=== PATIENT | male | born 1980 | race Hispanic/Latino ===

== ENCOUNTER 2018-12-03 01:01 | Emergency (ER) | payer OTHER | END 2018-12-03 01:40 | disposition home or self-care (01) | LOC: EDH 01:01 | DX: Z00.00 Encounter for general adult medical examination without abnormal findings (principal); Z72.0 Tobacco use | CPT/HCPCS: 99281 ==

== ENCOUNTER 2019-03-28 10:24 | Emergency (ER) | payer OTHER ==
[2019-03-28] MEDS ORDERED: TETANUS/DIPHTHERIA TOXOID [ADULT] 0.5 ML VIAL IM ONE (10:46)
[2019-03-28] MEDS ORDERED: NAPROXEN 500 MG TABLET ONE (11:12)
== END 2019-03-28 11:19 | disposition home or self-care (01) ==
LOC: EDH 10:24
DX: S62.312A Displaced fracture of base of third metacarpal bone, right hand, initial encounter for closed fracture (principal); S51.011A Laceration without foreign body of right elbow, initial encounter; Z72.0 Tobacco use; W18.39XA Other fall on same level, initial encounter; Y93.89 Activity, other specified; Y92.008 Other place in unspecified non-institutional (private) residence as the place of occurrence of the external cause; Y99.8 Other external cause status
CPT/HCPCS: 29125; 73080; 73130; 90471; 90714

== ENCOUNTER 2023-11-28 20:20 | Emergency (ER) | payer BC ==
[~2023-11-28] VITALS: Ht 180.3 cm; Wt 95.7 kg
[2023-11-28 21:10] LABS: APPEARANCE,URINE CLEAR (CLEAR); BILIRUBIN,URINE NEGATIVE (NEGATIVE); GLUCOSE, URINE (UA) NEGATIVE (NEGATIVE); KETONES,URINE NEGATIVE (NEGATIVE); LEUKOCYTE ESTERASE ,URINE NEGATIVE Leu/uL (NEGATIVE); NITRATE,URINE NEGATIVE (NEGATIVE); OCCULT BLOOD,URINE LARGE (NEGATIVE); PROTEIN,URINE NEGATIVE (NEGATIVE); UROBILINOGEN,URINE 0.2 mg/dL (0.2-1.0)
[2023-11-28] MEDS: FAMOTIDINE 20MG VIAL IV ONE (21:15)
[2023-11-28] MEDS: ONDANSETRON 4MG INJ IVP ONE (21:15)
[2023-11-28] MEDS: DiphenhydrAMINE HCL 50 MG/ML VIAL IV ONE (21:15)
[2023-11-28] MEDS: 0.9%NACL 1000ML 1,000 ML IV SCH (21:15)
[2023-11-28 21:16] LABS: HEMATOCRIT 39.8 % (42-54); MEAN CORPUSCULAR HEMOGLOBIN 32.3 pg (27.0-33.0); MEAN CORPUSCULAR HGB CONC 35.2 g/dL (32.0-36.0); MEAN CORPUSCULAR VOLUME 91.9 fL (79-99); PLATELET COUNT (AUTO) 208 K/uL (130-400); RED BLOOD CELL COUNT(AUTO) 4.33 MIL/uL (4.50-6.20); RED CELL DISTRIBUTION WIDTH 12.1 % (11.0-15.5); WHITE BLOOD COUNT (AUTO) 9.7 K/uL (4.8-10.8)
[2023-11-28 21:19] LABS: ADD UA MICROSCOPIC YES; COLOR,URINE Light-Yellow (YELLOW)
[2023-11-28 21:21] LABS: BASOPHILS # (AUTO) 0.08 K/uL (0.00-0.20); BASOPHILS % (AUTO) 0.8 % (0.0-5.0); EOSINOPHILS # (AUTO) 0.18 K/uL (0.00-0.70); EOSINOPHILS % (AUTO) 1.9 % (0.0-8.0); IMMATURE GRANULOCYTE ABSOLUTE 0.01 K/uL (0-1); LYMPHOCYTES # (AUTO) 2.2 K/uL (1.0-4.8); LYMPHOCYTES % (AUTO) 22.9 % (21.0-51.0); MONOCYTES # (AUTO) 0.8 K/uL (0.1-1.0); MONOCYTES % (AUTO) 7.8 % (3.0-13.0); NEUTROPHILS # (AUTO) 6.4 K/uL (1.8-7.7); NEUTROPHILS % (AUTO) 66.5 % (40.0-77.0)
[2023-11-28 21:22] LABS: BACTERIA,URINE RARE /HPF (None Seen); RBC,URINE 0-1 /HPF (0-1); SQUAMOUS EPITHELIAL CELL,UR RARE /HPF (0-2); WBC,URINE 0-1 /HPF (0-1)
[2023-11-28 21:23] LABS: AMPHET/METH SCREEN,URINE NEGATIVE (NEGATIVE); BARBITURATE SCREEN, URINE NEGATIVE (NEGATIVE); BENZODIAZEPINES SCREEN,URINE NEGATIVE (NEGATIVE); CANNABINOID SCREEN,URINE NEGATIVE (NEGATIVE); COCAINE SCREEN,URINE POSITIVE (NEGATIVE); OPIATE SCREEN,URINE NEGATIVE (NEGATIVE); PHENCYCLIDINE SCREEN,URINE NEGATIVE (NEGATIVE)
[2023-11-28 21:26] LABS: CREATININE 1.1 mg/dL (0.5-1.5); POTASSIUM 3.6 mmol/L (3.5-5.1)
[2023-11-28 21:27] LABS: INR <= 0.93 (0.85-1.15); PROTHROMBIN TIME 10.3 SEC (9.6-11.6)
[2023-11-28] MEDS ORDERED: IOHEXOL-350 75 ML VIAL IV ONE (21:27)
[2023-11-28 21:28] LABS: PARTIAL THROMBOPLASTIN TIME 26.7 SEC (26.3-35.5)
[2023-11-28 21:30] LABS: ALBUMIN 3.1 g/dL (3.5-5.0); BILIRUBIN,TOTAL 0.3 mg/dL (0.2-1.0); TOTAL PROTEIN, SERUM 7.4 g/dL (6.0-8.3)
[2023-11-28] MEDS: MORPHINE 4 MG SYG IVP ONE ×2 (22:55→23:42)
[2023-11-28] MEDS: 0.9%NACL 1000ML 1,000 ML IV ONE (22:59)
[2023-11-29] MEDS: HYDROMORPHONE 1 MG INJ IVP ONE (00:30)
[2023-11-29] MEDS: PROCHLORPERAZINE 10MG/2ML INJ IV ONE (00:47)
[2023-11-29] MEDS ORDERED: ONDA4TAB10 SL (01:34)
[2023-11-29] MEDS ORDERED: METH-662 PO (01:34)
[2023-11-29] MEDS ORDERED: IBUP-1493 PO (01:34)
[2023-11-29 01:47] VITALS: BP 140/79; PULSE 84; RESP 17; O2SAT 98
== END 2023-11-29 01:57 | disposition home or self-care (01) ==
LOC: EDH 20:20
DX: N13.30 Unspecified hydronephrosis (principal); M54.50 Low back pain, unspecified
CPT/HCPCS: 99284; 74177; 96374; 96375 ×2; 96361; 82550; 80053; 80305; 82140; 83690; 85025; 85610; 85730; 81001; 36415; 96376; J1200; J3490; J7030; J2405; J2270 ×2; Q9967; J1170; J0780

== ENCOUNTER 2024-06-08 18:56 | Emergency (ER) | payer BC ==
[~2024-06-08] VITALS: Ht 180.3 cm; Wt 95.3 kg
[~2024-06-08 18:56] MED LIST: IBUP-1493 PO; METH-662 PO; ONDA-243 SL
[2024-06-08] MEDS ORDERED: AMOX-426 PO (19:19)
[2024-06-08] MEDS: ketOROlac 15MG/ML VIAL (15MG/ML) IM STA (19:29)
[2024-06-08] MEDS: cefTRIAXone 1G VIAL IM STA (19:29)
[2024-06-08 20:19] VITALS: BP 150/90; PULSE 90; RESP 20; TEMP 99.1; O2SAT 98
== END 2024-06-08 20:21 | disposition home or self-care (01) ==
LOC: EDH 18:56
DX: K02.9 Dental caries, unspecified (principal); I10 Essential (primary) hypertension; Z98.890 Other specified postprocedural states
CPT/HCPCS: 99284; 96372 ×2; J0696; J1885

== ENCOUNTER 2024-09-08 04:00 | Emergency (ER) | payer BC ==
[~2024-09-08] VITALS: Ht 180.3 cm; Wt 97.5 kg
[~2024-09-08 04:00] MED LIST changes: +AMOX-426 PO
[2024-09-08 04:04] VITALS: TEMP 98.2
[2024-09-08 04:09] VITALS: BP 152/86; PULSE 85; RESP 18; O2SAT 96
[2024-09-08] MEDS: ketOROlac 30MG VIAL (30MG/ML) IM ONE (04:17)
[2024-09-08] MEDS: acetaMINOPHEN 500 MG TABLET PO ONE (04:17)
[2024-09-08] MEDS ORDERED: ACET-66 PO (04:19)
[2024-09-08] MEDS ORDERED: IBUP-2077 PO (04:19)
[2024-09-08] MEDS ORDERED: AMOX1TAB16 PO (04:19)
--- NOTE | 2024-09-08 04:19 | ERN ---
ED Note History of Present Illness Stated Complaint: TOOTHACHE Chief Complaint: Tooth Ache/Pain Time Seen by MD: 04:04 Dictation: Patient is a 44-year-old male with history of poor dental hygiene, presents to the ER complaining of tooth pain in the 1st-2nd upper left molar, patient states that the pain started today, he also reports being seen around 6 months ago at the emergency department due to similar pain where he received a pain medication shot and was discharged home, patient has not been followed by a dentist as outp atient. He denies fever, chills. Allergies: Coded Allergies: No Known Drug Allergies (Unverified Allergy, Unknown, 03/28/19) Home Meds Active Scripts Acetaminophen (Tylenol) 500 Mg Tab, 1 TAB PO Q6HPRN PRN for pain or fever for 5 Days, #20 TAB 0 Refills Prov:DARRIAN BRAN MD 09/08/24 Ibuprofen (Ibuprofen 800 mg Tab) 800 Mg Tab, 800 MG PO Q6H PRN for PAIN, #20 TAB Prov:DARRIAN BRAN MD 09/08/24 Amoxicillin/Potassium Clav (Amox Tr-K Clv 875-125 mg Tab) 875 Mg-125 Mg Tablet, 1 TAB PO BID for 7 Days, #14 TAB 0 Refills Prov:DARRIAN BRAN MD 09/08/24 Amoxicillin/Potassium Clav (Augmentin 500-125 Tablet) 500 Mg-125 Mg Tablet, 1 EACH PO TID for 7 Days, #21 TAB Prov:KENDRICK BRANTLEY 06/08/24 Methocarbamol (Robaxin) 750 Mg Tab, 750 MG PO Q8H, #12 TAB Prov:RADHA BHATTI MD 11/29/23 Ondansetron (Ondansetron Odt) 4 Mg Tab.rapdis, 4 MG SL Q4HPRN PRN for nausea/vomiting, #15 TAB Prov:RADHA BHATTI MD 11/29/23 Ibuprofen (Motrin/Advil) 800 Mg Tab, 800 MG PO Q8H, #12 TAB Prov:RADHA BHATTI MD 11/29/23 Past Medical History Past Medical History: Hypertension Surgical History: Other Surgical History Other: NEPHRECTOMY Review of System Dictation NEGATIVE EXCEPT PER HPI Constitutional: Negative for fever,chills, and weight loss Eyes: Negative for injury, pain,redness, and discharge ENT: Negative for injury,pain or swelling Reports tooth pain Cardiovascular: denies chest pain, palpitations, and edema Respiratory: Negative for shortness of breath, cough, and wheezing, Abdomen/GI: Negative for abdominal pain, nausea, vomiting, diarrhea, and constipation Back: Negative for injury and pain : Negative for injury, bleeding and discharge MS/Extremity: Negative for injury and deformity Skin: Negative for rash, and discoloration Neuro: Negative for headache, weakness, numbness, tingling, and seizure Psych: Negative for suicide ideation, homicidal ideation, and hallucinations Initial Vital Sign VS Vital Signs Date Time Temp Pulse Resp B/P (MAP) Pulse Ox O2 Delivery O2 Flow Rate FiO2 09/08/24 04:04 98.2 88 18 160/92 96 Room Air 0 09/08/24 04:09 21 Physical Exam Dictation General: awake, alert, NAD Head/Face: Normocephalic, atraumatic Eyes: PERRL, EOMI, vision at baseline ENT: oral cavity clear, TMs clear, no signs of infection Patient has poor dental hygiene Neck: Trachea midline, supple, no nuchal rigidity Cardiovascular: RRR, normal S1/S2, No MRGs, no JVD Respiratory: CTAB, no respiratory distress, No rales or wheezes Abdomen: Soft , no tender Skin: Warm, dry, normal turgor, no rash MS/Extremity: Pulses equal, no cyanosis, neurovascular intact, FROM Neuro: COAx4, GCS 15, strength 5/5, CN 2-12 intact, normal cerebellar exam, no rmal gait, Psych: Normal behavior, mood, and affect normal ED Course ED Course Orders Procedure Category Date Status Time Ketorolac PHA 09/08/24 Complete Tromethamine 30mg/Ml 04:30 Acetaminophen 500mg PHA 09/08/24 Complete Tab (Tylenol 500mg T 04:30 Current Medications Medications (Trade) Dose Ordered Sig/[place] Route PRN Reason Start Time Stop Time Status Last Admin Dose Admin Acetaminophen (TYLenol 500MG TAB) 500 mg ONCE ONCE PO 09/08/24 04:30 09/08/24 04:31 DC 09/08/24 04:17 Ketorolac Tromethamine (toRADol) 30 mg ONCE ONCE IM 09/08/24 04:30 09/08/24 04:31 DC 09/08/24 04:17 Vital Signs Date Time Temp Pulse Resp B/P (MAP) Pulse Ox O2 Delivery O2 Flow Rate FiO2 09/08/24 04:09 85 18 152/86 96 Room Air* 0 21 09/08/24 04:04 98.2 88 18 160/92 96 Room Air 0 Medical Decision Making MDM 44-year-old male with history of poor dental hygiene, tooth cavity who presented to the ER complaining of dental pain. -tooth pain -tooth cavity Pain medication ordered ketorolac 30 mg IV, Tylenol 500 mg oral Plan to discharge patient home on pain medication as well antibiotic therapy oral with recommendation to follow up with dentist in the next 24 hours. Patient is afebrile. DX & DISP Disposition: Discharge Departure Impression: Primary Impression: Dental caries Additional Impressions: Cracked tooth, Tooth ache, Tooth decay Condition: Stable Scripts Acetaminophen (Tylenol) 500 Mg Tab 1 TAB PO Q6HPRN PRN for pain or fever for 5 Days, #20 TAB 0 Refills Prov: DARRIAN BRAN MD 09/08/24 Ibuprofen (Ibuprofen 800 mg Tab) 800 Mg Tab 800 MG PO Q6H PRN for PAIN, #20 TAB Prov: DARRIAN BRAN MD 09/08/24 Amoxicillin/Potassium Clav (Amox Tr-K Clv 875-125 mg Tab) 875 Mg-125 Mg Tablet 1 TAB PO BID for 7 Days, #14 TAB 0 Refills Prov: DARRIAN BRAN MD 09/08/24 Additional Instructions: RETURN TO ER FOR ANY ACUTE OR WORSENING SYMPTOMS. FOLLOW-UP IN 1-2 DAYS WITH PRIMARY PROVIDER FOR RECHECK OF TODAY'S SYMPTOMS. Referrals: Ramiro GARCIA MD (PCP) DARRIAN BRAN MD Sep 08, 2024 04:19
== END 2024-09-08 04:40 | disposition home or self-care (01) ==
LOC: EDH 04:00
DX: K02.9 Dental caries, unspecified (principal); K03.81 Cracked tooth; K08.89 Other specified disorders of teeth and supporting structures; I10 Essential (primary) hypertension; Z90.5 Acquired absence of kidney
CPT/HCPCS: 99284; 96372; J1885